=== PATIENT | female | born 1980 | race Caucasian/White ===

== ENCOUNTER 2017-11-14 04:26 | Emergency (ER) | payer OTHER ==
[~2017-11-14] VITALS: Ht 170.2 cm; Wt 80.0 kg
[~2017-11-14 04:26] MED LIST: DOCO200C PO; FOLI400T30 PO; OXYC1SOL5 PO
[2017-11-14 04:28] VITALS: BP 155/92; PULSE 121; RESP 20; TEMP 97.4; O2SAT 100
[2017-11-14] MEDS ORDERED: LEVO-33 PO (04:34)
--- NOTE | 2017-11-14 05:30 | PD ---
HPI Chief Complaint: Bleeding Time Seen by Provider: 05:25 Travel History International Travel<30 days: No Contact w/Intl Traveler<30days: No Traveled to known affect area: No History of Present Illness HPI 37-year-old female patient with history of missed AB at the end of September, had several doses of Methergine before she started having completed miscarriage at the end of October, and states that she has been spotting since, started having heavy vaginal bleeding several days ago, had been following up with OB/ [facility] Dr[facility] Touss[facility] office, had an ultrasound on Thursday which shows that she had passed all of her products of conception, but states she is still heavily having vaginal bleeding, using multiple multiple pads last night. She is having abdominal cramping pains. She denies any other issues. Modifying Factors: None Associated Signs & Symptoms: Heavy vaginal bleeding Risk Factors: Recent induced AB after missed PFS Past Medical History Medical History: Denies Significant Hx ?: Unknown Past Surgical History Surgical History: No Previous Surgery Social History Alcohol Use: Yes Tobacco Use: No Substance Use: No Allergies-Medications (Allergen,Severity, Reaction): Coded Allergies: No Known Allergies (Unverified Adverse Reaction, Unknown, 11/14/17) Reported Meds & Prescriptions Reported Meds & Active Scripts Active Reported Levonorgestrel-Ethinyl Estradiol 0.1-0.02 Mg Tab 1 Tab PO DAILY Review of Systems Except as stated in HPI: all other systems reviewed are Neg Physical Exam Narrative GENERAL: Well-developed young female patient currently in no acute distress. Awake and oriented 3. SKIN: Focused skin assessment warm/dry. HEAD: Atraumatic. Normocephalic. EYES: Pupils equal and round. No scleral icterus. No injection or drainage. ENT: No nasal bleeding or discharge. Mucous membranes pink and moist. NECK: Trachea midline. No JVD. CARDIOVASCULAR: Regular rate and rhythm. No murmur appreciated. RESPIRATORY: No accessory muscle use. Clear to auscultation. Breath sounds equal bilaterally. GASTROINTESTINAL: Abdomen soft, non-tender, nondistended. Hepatic and splenic margins not palpable. GENITOURINARY: Normal external genitalia without lesions or erythema. Vaginal vault with dark red blood but no significant drainage. Cervical os was closed without drainage. No cervical motion tenderness. Uterus nontender and nonenlarged. Bilateral adnexa nontender without masses MUSCULOSKELETAL: No obvious deformities. No clubbing. No cyanosis. No edema. NEUROLOGICAL: Awake and alert. No obvious cranial nerve deficits. Motor grossly within normal limits. Normal speech. PSYCHIATRIC: Appropriate mood and affect; insight and judgment normal. Data Data Last Documented VS Vital Signs Date Time Temp Pulse Resp B/P (MAP) Pulse Ox O2 Delivery O2 Flow Rate FiO2 11/14/17 04:28 97.4 121 20 155/92 (113) 100 Orders Orders Beta Hcg (Quant/Titer) (11/14/17 05:13) Complete Blood Count With Diff (11/14/17 05:13) Comprehensive Metabolic Panel (11/14/17 05:13) Type And Screen (11/14/17 05:13) Red Blood Cells (Rbc) (11/14/17 05:28) Ed Discharge Order (11/14/17 06:45) Labs Laboratory Tests Test 11/14/17 05:28 White Blood Count 8.0 TH/MM3 Red Blood Count 4.10 MIL/MM3 Hemoglobin 11.5 GM/DL Hematocrit 33.3 % Mean Corpuscular Volume 81.3 FL Mean Corpuscular Hemoglobin 28.1 PG Mean Corpuscular Hemoglobin Concent 34.5 % Red Cell Distribution Width 13.3 % Platelet Count 297 TH/MM3 Mean Platelet Volume 7.8 FL Neutrophils (%) (Auto) 72.7 % Lymphocytes (%) (Auto) 15.8 % Monocytes (%) (Auto) 10.0 % Eosinophils (%) (Auto) 0.9 % Basophils (%) (Auto) 0.6 % Neutrophils # (Auto) 5.8 TH/MM3 Lymphocytes # (Auto) 1.3 TH/MM3 Monocytes # (Auto) 0.8 TH/MM3 Eosinophils # (Auto) 0.1 TH/MM3 Basophils # (Auto) 0.0 TH/MM3 CBC Comment DIFF FINAL Differential Comment Blood Urea Nitrogen 15 MG/DL Creatinine 0.93 MG/DL Random Glucose 124 MG/DL Total Protein 7.1 GM/DL Albumin 3.7 GM/DL Calcium Level 8.5 MG/DL Alkaline Phosphatase 42 U/L Aspartate Amino Transf (AST/SGOT) 31 U/L Alanine Aminotransferase (ALT/SGPT) 20 U/L Total Bilirubin 0.3 MG/DL Sodium Level 137 MEQ/L Potassium Level 3.8 MEQ/L Chloride Level 107 MEQ/L Carbon Dioxide Level 22.3 MEQ/L Anion Gap 8 MEQ/L Estimat Glomerular Filtration Rate 68 ML/MIN Human Chorionic Gonadotropin, Quant 9 MIU/ML MDM Medical Decision Making Medical Screen Exam Complete: Yes Emergency Medical Condition: Yes Medical Record Reviewed: Yes Interpretation(s) Laboratory Tests Test 11/14/17 05:28 Hemoglobin 11.5 GM/DL (11.6-15.3) Hematocrit 33.3 % (35.0-46.0) Neutrophils (%) (Auto) 72.7 % (16.0-70.0) Monocytes (%) (Auto) 10.0 % (0.0-8.0) Random Glucose 124 MG/DL (74-106) Alkaline Phosphatase 42 U/L (45-117) Estimat Glomerular Filtration Rate 68 ML/MIN (>89) Human Chorionic Gonadotropin, Quant 9 MIU/ML (0-5) Differential Diagnosis Menorrhagia versus significant anemia versus dysfunctional uterine bleeding Narrative Course Patient had an ultrasound done by her OBSTETRICAL TECH on Thursday which did not show any signs of retained products. Her hCG is fairly low and appears to be dropping appropriately. Pelvic exam shows dark red blood but not a large amount of bleeding currently. H&H is stable. Vital signs are stable. Patient had just started on OCPs yesterday afternoon. At this point, my plan would be to have her continue on OCPs and following with her OBSTETRICAL TECH on Thursday. Return for any worsening and bleeding or new issues as needed. The plan has been discussed with her and she states understanding. Diagnosis Primary Impression: Dysfunctional uterine bleeding Additional Instructions: Follow-up on Thursday with your OBSTETRICAL TECH. Return for worsening in bleeding and as needed. Disposition: DISCHARGE HOME Condition: Stable Jennifer Hutchison MD Nov 14, 2017 05:30
[2017-11-14 05:51] LABS: AUTOMATED NEUTROPHIL # 5.8 TH/MM3 (1.8-7.7); BASOPHIL % 0.6 % (0.0-2.0); EOSINOPHIL # 0.1 TH/MM3 (0-0.4); EOSINOPHIL % 0.9 % (0.0-4.0); HEMATOCRIT 33.3 % (35.0-46.0); HEMOGLOBIN 11.5 GM/DL (11.6-15.3); LYMPH % 15.8 % (9.0-44.0); LYMPHOCYTE # 1.3 TH/MM3 (1.0-4.8); MEAN CELL VOLUME 81.3 FL (80.0-100.0); MEAN CORPUSCULAR HEMOGLOBIN 28.1 PG (27.0-34.0); MEAN CORPUSCULAR HGB CONC 34.5 % (32.0-36.0); MEAN PLATELET VOLUME 7.8 FL (7.0-11.0); MONOCYTE # 0.8 TH/MM3 (0-0.9); NEUT % 72.7 % (16.0-70.0); PLATELET COUNT 297 TH/MM3 (150-450); RED CELL DISTRIBUTION WIDTH 13.3 % (11.6-17.2)
[2017-11-14 06:18] LABS: ALBUMIN 3.7 GM/DL (3.4-5.0); ALT (GPT) 20 U/L (10-53); AST (GOT) 31 U/L (15-37); BICARBONATE 22.3 MEQ/L (21.0-32.0); BLOOD UREA NITROGEN 15 MG/DL (7-18); CALCIUM 8.5 MG/DL (8.5-10.1); CHLORIDE 107 MEQ/L (98-107); CREATININE 0.93 MG/DL (0.50-1.00); GLOMERULAR FILTRATION RATE 68 ML/MIN (>89); GLUCOSE,RANDOM 124 MG/DL (74-106); SODIUM (NA) 137 MEQ/L (136-145)
[2017-11-14 06:22] LABS: ALKALINE PHOSPHATASE 42 U/L (45-117); TOTAL BILIRUBIN ADULT 0.3 MG/DL (0.2-1.0); TOTAL PROTEIN 7.1 GM/DL (6.4-8.2)
== END 2017-11-14 07:07 | disposition home or self-care (01) ==
LOC: NEPE 04:26
DX: N93.8 Other specified abnormal uterine and vaginal bleeding (principal); Z79.899 Other long term (current) drug therapy
CPT/HCPCS: 80053; 84702; 85025; 86077; 86850; 86870; 86900; 86901; 86920; 86922; 99284